=== PATIENT | female | born 1965 | race Caucasian/White ===

== ENCOUNTER 2021-12-13 11:35 | Emergency (ER) | payer MEDICAID ==
[~2021-12-13] VITALS: Ht 149.9 cm; Wt 82.1 kg
[2021-12-13 11:44] VITALS: BP 174/109
[2021-12-13] MEDS ORDERED: NAPR-54 PO (14:46)
--- NOTE | 2021-12-13 14:58 | NUR ---
pulses wnl, pt states sling is not too tight at this time. cap refill <3. right arm sling
[2021-12-13 15:00] VITALS: BP 174/109
--- NOTE | 2021-12-13 15:00 | NUR ---
Patient discharged with v/s stable. Written and verbal after care instructions given and explained. Patient alert, oriented and verbalized understanding of instructions. Ambulatory with spouse to car. All questions addressed prior to discharge. ID band removed. Patient advised to follow up with PMD. Rx of naproxen (sent) given. Patient educated on indication of medication including possible reaction and side effects. Opportunity to ask questions provided and answered.
== END 2021-12-13 15:00 | disposition home or self-care (01) ==
LOC: MED 11:35
DX: S40.011A Contusion of right shoulder, initial encounter (principal); Z98.890 Other specified postprocedural states; W19.XXXA Unspecified fall, initial encounter; Y93.89 Activity, other specified; Y92.89 Other specified places as the place of occurrence of the external cause; Y99.8 Other external cause status
CPT/HCPCS: 73030; 73060; 99284